=== PATIENT | male | born 1965 | race African-American/Black ===

== ENCOUNTER 2020-07-29 11:28 | Inpatient (IN) | payer BC ==
--- NOTE | 2020-07-29 11:35 | BHS.RME ---
Substance Use & Tx History - Substance Use History Alcohol Substance amount: 1/2 gallon wine Frequency of use: Daily Substance route: Oral Date of Last Use: 07/29/20 (started age 7) Marijuana/Hashish Date of Last Use: 07/29/20 (started age 6) Nicotine Substance amount: 10 blunts Frequency of use: Daily Substance route: Smoking Date of Last Use: 07/29/20 (started age 14) Physical/Psych/Mental Status - Behavior General Behavior: Increased activity (restlessness, agitation) Eye Contact: Normal - Cooperativeness Cooperativeness: Cooperative - Thinking Thought Processes: Tight, Logical, Goal Directed - Physical Health Problems Is patient presently having any pain?: No Does patient presently have any injuries (include location): No Does patient currently have a fever: No Is patient : No CIWA Nausea/Vomitin-Mild Nausea/No Vomiting Muscle Tremors: 1-None Visible, but [place] Anxiety: 4-Mod. Anxious/Guarded Agitation: 3 Paroxysmal Sweats: 4-Forehead w/Sweat Beads Orientation: 1-Uncertain about Date Tacttile Disturbances: 1-Very Mild Itch/Numbness Auditory Disturbances: 0-None Visual Disturbances: 1-Very Mild Sensitivity Headache: 2-Mild CIWA-Ar Total Score: 18
[2020-07-29 12:25] VITALS: BMI 31.4
--- NOTE | 2020-07-29 12:49 | HP ---
CIWA Score Nausea/Vomitin-Mild Nausea/No Vomiting Muscle Tremors: 1-None Visible, but [place] Anxiety: 4-Mod. Anxious/Guarded Agitation: 3 Paroxysmal Sweats: 4-Forehead w/Sweat Beads Orientation: 1-Uncertain about Date Tacttile Disturbances: 1-Very Mild Itch/Numbness Auditory Disturbances: 0-None Visual Disturbances: 1-Very Mild Sensitivity Headache: 2-Mild CIWA-Ar Total Score: 18 - Admission Criteria OASAS Guidelines: Admission for Medically Managed Detox: Requires at least one of the followin. CIWA greater than 12 2. Seizures within the past 24 hours 3. Delirium tremens within the past 24 hours 4. Hallucinations within the past 24 hours 5. Acute intervention needed for co occurring medical disorder 6. Acute intervention needed for co occurring psychiatric disorder 7. Severe withdrawal that cannot be handled at a lower level of care (continued vomiting, continued diarrhea, abnormal vital signs) requiring intravenous medication and/or fluids 8. Admitting History and Physical - Admission Chief Complaint: Mr. Coats is a 54 yo gentleman who presents to [facility] requesting admission to detox for alcohol use disorder. History of Present Illness: Mr. Coats is a 54 yo gentleman who presents to [facility] requesting admission to detox for alcohol use disorder. This is his first visit to [facility]. PMH: SVT, defibrillator 6 years ago (last discharged in October 2019), CAD, CABG x2, HTN, gout PSH; Defibrillator, bypass, umbilical hernia, left hand fracture Psych: schizophrenia, bipolar on no meds for more than one year SOC: lives alone in a private home Legal: none Substance Use History Alcohol Substance amount: 1/2 gallon wine Frequency of use: Daily Substance route: Oral Date of Last Use: 07/29/20 (started age 7) No seizures Blackouts, last was one year ago Admits to eyeopener Marijuana/Hashish Date of Last Use: 07/29/20 (started age 6) 10 blunts Nicotine Substance amount: 10 blunts Frequency of use: Daily Substance route: Smoking Date of Last Use: 07/29/20 (started age 14) History Source: Patient Limitations to Obtaining History: No Limitations Admission [facility] Allergies/Adverse Reactions: Allergies Allergy/AdvReac Type Severity Reaction Status Date / Time No Known Allergies Allergy Verified 07/29/20 12:30 Exam Limitations: No Limitations - Ebola screening Have you traveled outside of the country in the last 21 days: No Have you been sick,other than usual withdrawal symptoms: No Do you have a fever: No - Review of Systems Constitutional: No Symptoms Reported EENT: reports: No Symptoms Reported Respiratory: reports: Cough (dry for one week), Other (uses an inhaler) Cardiac: reports: Chest Pain (since October, followed by cardiology, he attributes to a procedure done in October 2019 ? stent) GI: reports: No Symptoms Reported : reports: Other (nocturia) Musculoskeletal: reports: Back Pain (lifelong per pt), Other (cane to ambulate) Integumentary: reports: Dryness Neuro: reports: No Symptoms reported Endocrine: reports: No Symptoms Reported Hematology: reports: No Symptoms Reported Psychiatric: reports: Anxious, Depressed (no SI) Patient History - Smoking Cessation Smoking history: Current every day smoker Have you smoked in the past 12 months: Yes Aproximately how many cigarettes per day: 5 Hx Chewing Tobacco Use: No Initiated information on smoking cessation: Yes 'Breaking Loose' booklet given: 07/29/20 Admission Physical Exam S - Vital Signs Vital Signs: Vital Signs - 24 hr 07/29/20 12:22 Temperature 97.3 F L Pulse Rate 79 Respiratory 20 Rate Blood Pressure 111/85 - Physical General Appearance: Yes: No Apparent Distress, Nourished, Appropriately Dressed HEENTM: Yes: EOMI, Hearing grossly Normal, Normocephalic, Normal Voice Respiratory: Yes: No Respiratory Distress, No Accessory Muscle Use, Rhonchi, Wheezing Neck: Yes: Within Normal Limits, Supple Breast: Yes: Breast Exam Deferred Cardiology: Yes: Regular Rate, S1, S2 Abdominal: Yes: Normal Bowel Sounds, Non Tender, Soft, Protuberent Genitourinary: Yes: Other (deferred) Back: Yes: Normal Inspection Musculoskeletal: Yes: Gait Steady Extremities: Yes: Normal Inspection, Non-Tender Neurological: Yes: Alert, Normal Response Integumentary: Yes: Within Normal Limits - Diagnostic (1) Alcohol abuse with withdrawal, uncomplicated Current Visit: Yes Status: Acute (2) Cannabis dependence Current Visit: Yes Status: Acute (3) Nicotine dependence Current Visit: Yes Status: Acute Qualifiers: Nicotine product type: cigarettes Substance use status: uncomplicated Qualified Code(s): F17.210 - Nicotine dependence, cigarettes, uncomplicated (4) SVT (supraventricular tachycardia) Current Visit: No Status: Chronic (5) Cardiac defibrillator in place Current Visit: No Status: Chronic (6) CAD (coronary artery disease) Current Visit: No Status: Chronic (7) S/P CABG x 2 Current Visit: No Status: Chronic (8) HTN (hypertension) Current Visit: Yes Status: Chronic (9) Gout Current Visit: No Status: Chronic (10) H/O umbilical hernia repair Current Visit: Yes Status: Acute (11) Left hand fracture Current Visit: No Status: Chronic (12) Schizophrenia Current Visit: Yes Status: Acute (13) Bipolar disorder Current Visit: Yes Status: Chronic Cleared for Admission BHS - Detox or Rehab S Level of Care: Medically Managed Detox Regimen/Protocol: Librium Breathalyzer - Breathalyzer Breathalyzer: 0 Urine Drug Screen - Test Device Lot number: [id number] Expiration date: 01/30/22 - Control Is test valid?: Yes - Results Drug screen NEGATIVE: No Urine drug screen results: THC-Marijuana Inpatient Rehab Admission - Rehab Decision to Admit Inpatient rehab admission?: No
[2020-07-29] MEDS ORDERED: MENTHOL/PHENOL 1 EACH UD MM PRN (12:53)
[2020-07-29] MEDS ORDERED: BISMUTH SUBSALICYLATE 524 MG/30 ML UD PO PRN (12:53)
[2020-07-29] MEDS ORDERED: ACETAMINOPHEN 325 MG TABLET (FP) PO PRN ×2 (12:53)
[2020-07-29] MEDS ORDERED: NICOTINE POLACRILEX 2 MG GUM BUC PRN (12:53)
[2020-07-29] MEDS ORDERED: MAG HYDROX/AL HYDROX/SIMETH 30 ML UNIT-DOSE CUP PO PRN (12:53)
[2020-07-29] MEDS ORDERED: IBUPROFEN 400 MG TABLET (FP) PO PRN (12:53)
[2020-07-29] MEDS ORDERED: MAGNESIUM HYDROX 2400MG/30ML ORAL SUSPENSION 30 ML CUP PO PRN (12:53)
[2020-07-29] MEDS ORDERED: MAGNESIUM CITRATE 300 ML BOTTLE PO PRN (12:53)
[2020-07-29] MEDS ORDERED: ONDANSETRON *ODT* 4 MG TABLET SL PRN (12:53)
[2020-07-29] MEDS ORDERED: chlordiazePOXIDE HCL 25 MG CAPSULE PO PRN (12:53)
[2020-07-29] MEDS ORDERED: hydrOXYzine PAMOATE 25 MG CAPSULE (FP) PO SCH (14:00)
[2020-07-29] MEDS ORDERED: hydrOXYzine PAMOATE 25 MG CAPSULE (FP) PO PRN (14:17)
[2020-07-29] MEDS: AMIODARONE HCL 200 MG TABLET PO SCH (15:14)
[2020-07-29] MEDS: APIXABAN 5 MG TABLET PO SCH ×2 (15:14→22:13)
[2020-07-29] MEDS: LISINOPRIL 20 MG TABLET PO SCH (15:14)
[2020-07-29] MEDS: ASPIRIN COATED 81 MG TABLET.EC PO SCH (15:14)
[2020-07-29] MEDS: TAMSULOSIN HCL 0.4 MG CAP PO SCH (15:15)
[2020-07-29] MEDS: ALLOPURINOL 300 MG TABLET (FP) PO SCH (15:15)
[2020-07-29] MEDS: ATORVASTATIN CA 20 MG TABLET (FP) PO SCH (15:15)
[2020-07-29] MEDS: FUROSEMIDE 40 MG TABLET (FP) PO SCH (15:15)
[2020-07-29] MEDS: hydrALAZINE HCL 25 MG TABLET (FP) PO SCH ×2 (15:15→22:13)
[2020-07-29] MEDS: POTASSIUM CHLORIDE TABS 20 MEQ TABLET.ER (FP) PO SCH ×2 (15:15→22:14)
[2020-07-29] MEDS: valACYclovir HCL 500 MG TABLET (FP) PO SCH (15:34)
--- OUTSIDE RECORDS SUMMARY | 2020-07-29 15:36 | XMS ---
:1965 Author Organization [facility] Support Name Relationship Address Phone UE Unavailable Unavailable Unavailable JULY SANCHEZ SISTER [address] [phone] [place] [address] Re-disclosure Warning The records that you are about to access may contain information from federally- assisted alcohol or drug abuse programs. If such information is present, then the following federally mandated warning applies: This information has been disclosed to you from records protected by federal confidentiality rules (42 CFR part 2). The federal rules prohibit you from making any further disclosure of this information unless further disclosure is expressly permitted by the written consent of the person to whom it pertains or as otherwise permitted by 42 CFR part 2. A general authorization for the release of medical or other information is NOT sufficient for this purpose. The Federal rules restrict any use of the information to criminally investigate or prosecute any alcohol or drug abuse patient.The records that you are about to access may contain highly sensitive health information, the redisclosure of which is protected by Article 27-F of the [place] Public Health law. If you continue you may haveaccess to information: Regarding HIV / AIDS; Provided by facilities licensed or operated by the [facility] Office of Mental Health; or Provided by the [facility] Office for People With Developmental Disabilities. If such information is present, then the following [facility] mandated warning applies: This information has been disclosed to you from confidential records which are protected by state law. State law prohibits you from making any further disclosure of this information without the specific written consent of the person to whom it pertains, or as otherwise permitted by law. Any unauthorized further disclosure in violation of state law may result in a fine or long term sentence or both. A general authorization for the release of medical or other information is NOT sufficient authorization for further disclosure. Allergies and Adverse Reactions Type Description Substance Reaction Status Data Source(s ) No Known No Known Allergies No Known eCW3 ( [place] [facility]) No Known No Known Allergies No Known eCW3 ( [place] [facility]) Encounters Encounter Providers Location Date Indications Data Source(s ) Outpatient [facility] 04/13/2019 eCW3 ([facility] 12:00:00 AM Health Care) EDT - 04/13/2019 12:00:00 AM EDT Outpatient [facility] 04/11/2019 eCW3 ([facility] 12:00:00 AM Health Care) EDT - 04/11/2019 12:00:00 AM EDT Medications Medication Brand Start Product Dose Route Administrative Pharmacy [facility] Indications Reaction Description Data Name Date Form Instructions Instructions Source(s) Trazodone Trazod .0 active Trazodone eCW3 Hydrochlori one 2018 {tabl HCl 50 MG (H [facility] de 50 MG HCl 50 12:00: [facility] Oral Tablet MG 00 AM [facility] Trazodone EDT ime_a Care) HCl 50 MG s_nee ded} Risperidone Risper .0 active Risperd al 1 eCW3 1 MG Oral amber 1 2018 {tabl mg ([place] Tablet mg 12:00: et} [place] [Risperdal] 00 AM Health Risperdal 1 EDT Care) mg Risperidone Risper .0 active Risperd al 1 eCW3 1 MG Oral amber 1 2018 {tabl mg ([place] Tablet mg 12:00: et} [place] [Risperdal] 00 AM Health Risperdal 1 EDT Care) mg Trazodone Trazod .0 active Trazodone eCW3 Hydrochlori one 2018 {tabl HCl 50 MG ([facility] de 50 MG HCl 50 12:00: [facility] [place] Oral Tablet MG 00 AM [facility] Trazodone EDT ime_a Care) HCl 50 MG s_nee ded} RISPERDAL UNK active RISPERDAL eCW 3 ([facility]) TRAZADONE UNK active TRAZADONE eCW 3 ([facility]) TRAZADONE UNK suspend TRAZADONE eC W3 ed ([facility]) RISPERDAL UNK active RISPERDAL eCW 3 ([facility]) TRAZADONE UNK suspend TRAZADONE eC W3 ed ([facility]) TRAZADONE UNK suspend TRAZADONE eC W3 ed ([facility]) TRAZADONE UNK active TRAZADONE eCW 3 ([facility]) TRAZADONE UNK suspend TRAZADONE eC W3 ed ([facility]) TRAZADONE UNK suspend TRAZADONE eC W3 ed ([facility]) TRAZADONE UNK suspend TRAZADONE eC W3 ed ([facility]) Insurance Providers Payer name Policy type Policy ID Covered Covered green party's Policy P eddie / Coverage green party ID relationship to Correa Inf ormation type correa [facility] [id number] [facility] 67 Problems, Conditions, and Diagnoses Code Display Name Description Problem Type Effective Dates Data Source(s) F33.2 Severe episode of Severe episode of Problem 04/13/2019 eCW3 ([place] 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 depressive [facility] [place]) disorder disorder Social History Code Duration Value Status Description Data Source(s ) Smoking UNK completed eCW3 ([facility]) Vital Signs ID Date Data Source UNK Name Value Range Interpretation Code Description Data Source(s) Diastolic blood 90 mm[Hg] 90 mm[Hg] eCW3 ([facility]) Systolic blood 134 mm[Hg] 134 mm[Hg] eCW3 ([facility]) Body temperature 98.6 [degF] 98.6 [degF] eCW3 ( [facility]) Heart rate 18 /min 18 /min eCW3 ([facility]) Body mass index 31.32 kg/m2 31.32 kg/m2 eCW3 ([facility] (BMI) [Ratio] [facility]) Body weight 200 [lb_av] 200 [lb_av] eCW3 ([facility]) Body height [in_i] eCW3 ([facility]) Patient Treatment Plan of Care Planned Activity Planned Date Details Description Data Source (s) Risperidone 1 MG Oral 04/13/2019 12:00:00 eCW3 ([facility] Tablet [Risperdal] AM [facility] Ca re) Trazodone Hydrochloride 04/13/2019 12:00:00 eCW3 ([facility] 50 MG Oral Tablet AM [employer] [facility] Car e) Risperidone 1 MG Oral 04/13/2019 12:00:00 eCW3 ([facility] Tablet [Risperdal] AM [facility]) Trazodone Hydrochloride 04/13/2019 12:00:00 eCW3 ([facility] 50 MG Oral Tablet AM [employer])
--- NOTE | 2020-07-29 17:11 | EKG ---
Test Reason : Blood Pressure : / mmHG Vent. Rate : 075 BPM Atrial Rate : 075 BPM P-R Int : 182 ms QRS Dur : 102 ms QT Int : 432 ms P-R-T Axes : 058 044 -66 degrees QTc Int : 482 ms NORMAL SINUS RHYTHM T WAVE ABNORMALITY, CONSIDER LATERAL ISCHEMIA PROLONGED QT ABNORMAL ECG NO PREVIOUS ECGS AVAILABLE Confirmed by JAQUAN BURCIAGA MD ([id number]) on 07/29/2020 5:10:48 PM Referred By: Confirmed By:JAQUAN BURCIAGA MD
[2020-07-29] MEDS: chlordiazePOXIDE HCL 25 MG CAPSULE PO SCH ×2 (17:47→22:13)
[2020-07-29] MEDS: METHOCARBAMOL 500 MG TABLET PO PRN (17:54)
[2020-07-29 18:08] LABS: HEMATOCRIT 35.9 % (35.4-49); HEMOGLOBIN 11.6 GM/dL (11.7-16.9); MCH 31.3 pg (25.7-33.7); MCHC 32.3 g/dl (32.0-35.9); MEAN CELL VOLUME 96.8 fl (80-96); PLATELET COUNT 124 K/MM3 (134-434); RBC 3.71 M/mm3 (4.00-5.60); RDW 16.4 % (11.9-15.9); WHITE BLOOD COUNT 5.1 K/mm3 (4.0-10.0)
[2020-07-29 18:20] LABS: ALBUMIN 3.7 g/dl (3.4-5.0); BILIRUBIN,TOTAL 1.5 mg/dL (0.2-1); BLOOD UREA NITROGEN 19.5 mg/dL (7-18); CALCIUM 8.9 mg/dL (8.5-10.1); CREATININE 1.5 mg/dL (0.55-1.3); POTASSIUM 3.9 mmol/L (3.5-5.1)
[2020-07-29] MEDS: CARVEDILOL 6.25 MG TABLET (FP) PO SCH (22:13)
[2020-07-29] MEDS: THIAMINE HCL 100 MG TABLET (FP) PO SCH (22:13)
[2020-07-29] MEDS: MELATONIN 5 MG TABLETS PO SCH (22:14)
[2020-07-30] MEDS: hydrALAZINE HCL 25 MG TABLET (FP) PO SCH ×3 (05:28→22:34)
[2020-07-30] MEDS: chlordiazePOXIDE HCL 25 MG CAPSULE PO SCH ×4 (05:28→22:34)
--- NOTE | 2020-07-30 08:43 | CONSULT ---
[facility] Psychiatric Consult - Data Date of interview: 07/30/20 Identifying data: Mr Coats is a 54 years old Black male, father of 5 children, unemployed receving SSI, domiciled seeking detox treatment for alcohol and cannabis Substance Abuse History: Reports history of alcohol and marijuana use. Refer to addiction counselor's summary for further information Medical History: Significant for hypertension, dyslipidemia, GERDgout, coronary artery disease, history of treatment for SVT and multiple surgeries(implantation of defibrilator, umbillical hernia repair, fracture right hand, CABG x2). Smokes 2-3 cigarettes daily Psychiatric History: This is patient's first admission to this facility. He was very irritable and hostile during the interview. He reports that he was diagnosed with Bipolar Schizophrenia in 2018 while [facility], a program in [place], [place]. Claims that because of Covid-19 Pandemic, he stopped seeing the psychiatrist at [facility] and recently was seeing a psychiatrist at [facility] in [place]. He told policy writer typist that he has not taken psychotropic medications since 2018. He could not tell name of medications he was prescribed only saying:" I stopped it because it grew my breast". Reports 2 previous psychiatric hospitalizations but could not provide name of facilities. Reports 2-3 suicidal attempts via overdose. At present, denies experiencing psychotic, manic symptoms, S/H ideations. However reports feeling depressed and sleeping poorly Physical/Sexual Abuse/Trauma History: Topic not addressed due to patient's host ility Mental Status Exam - Mental Status Exam Alert and Oriented to: Time, Place, Person Cognitive Function: Fair Patient Appearance: Disheveled Mood: Depressed, Irritable Affect: Appropriate Patient Behavior: Cooperative Speech Pattern: Clear Voice Loudness: Normal Thought Process: Intact, Goal Oriented Thought Disorder: Not Present Hallucinations: Denies Suicidal Ideation: Denies Homicidal Ideation: Denies Insight/Judgement: Poor Sleep: Poorly Appetite: Good Muscle strength/Tone: Normal Gait/Station: Normal Psychiatric Findings - Problem List ([place] 1, 2,3) (1) Schizoaffective disorder Current Visit: Yes Status: Chronic (2) Bipolar disorder Current Visit: Yes Status: Ruled-out (3) Substance induced mood disorder Current Visit: Yes Status: Acute (4) Substance-induced sleep disorder Current Visit: Yes Status: Acute (5) Alcohol abuse with withdrawal, uncomplicated Current Visit: Yes Status: Acute (6) Cannabis dependence Current Visit: Yes Status: Acute (7) Nicotine dependence Current Visit: Yes Status: Chronic Qualifiers: Nicotine product type: cigarettes Substance use status: uncomplicated Qualified Code(s): F17.210 - Nicotine dependence, cigarettes, uncomplicated (8) HTN (hypertension) Current Visit: Yes Status: Chronic (9) Dyslipidemia Current Visit: Yes Status: Chronic (10) CAD (coronary artery disease) Current Visit: No Status: Chronic (11) SVT (supraventricular tachycardia) Current Visit: Yes Status: Resolved (12) Gout Current Visit: No Status: Chronic (13) H/O umbilical hernia repair Current Visit: Yes Status: Acute (14) Cardiac defibrillator in place Current Visit: No Status: Chronic (15) Left hand fracture Current Visit: No Status: Chronic (16) S/P CABG x 2 Current Visit: No Status: Chronic - Initial Treatment Plan Initial Treatment Plan: 1) Start Seroquel 100 mg po HS. 2) Continue inpatient detoxification
--- NOTE | 2020-07-30 09:46 | PN ---
[facility] CIWA - CIWA Score Nausea/Vomitin-Mild Nausea/No Vomiting Muscle Tremors: 2 Anxiety: 2 Agitation: 2 Paroxysmal Sweats: No Perspiration Orientation: 0-Oriented Tacttile Disturbances: 1-Very Mild Itch/Numbness Auditory Disturbances: 0-None Visual Disturbances: 0-None Headache: 2-Mild CIWA-Ar Total Score: 10 S Progress Note (SOAP) Subjective: alert,irritable,anxious,interrupted sleep,aching pain,tremor,nausea,pain in the back Objective: 07/30/20 12:00 Vital Signs Temperature 98.2 F 07/30/20 08:58 Pulse Rate 76 07/30/20 08:58 Respiratory Rate 18 07/30/20 08:58 Blood Pressure 110/78 07/30/20 08:58 O2 Sat by Pulse Oximetry (%) 100 07/30/20 08:58 Laboratory Last Values WBC 5.1 K/mm3 (4.0-10.0) 07/29/20 12:40 RBC 3.71 M/mm3 (4.00-5.60) L 07/29/20 12:40 Hgb 11.6 GM/dL (11.7-16.9) L 07/29/20 12:40 Hct 35.9 % (35.4-49) 07/29/20 12:40 MCV 96.8 fl (80-96) H 07/29/20 12:40 MCH 31.3 pg (25.7-33.7) 07/29/20 12:40 MCHC 32.3 g/dl (32.0-35.9) 07/29/20 12:40 RDW 16.4 % (11.9-15.9) H 07/29/20 12:40 Plt Count 124 K/MM3 (134-434) L 07/29/20 12:40 MPV 10.0 fl (7.5-11.1) 07/29/20 12:40 Sodium 142 mmol/L (136-145) 07/29/20 12:40 Potassium 3.9 mmol/L (3.5-5.1) 07/29/20 12:40 Chloride 108 mmol/L (98-107) H 07/29/20 12:40 Carbon Dioxide 26 mmol/L (21-32) 07/29/20 12:40 Anion Gap 7 MMOL/L (8-16) L 07/29/20 12:40 BUN 19.5 mg/dL (7-18) H 07/29/20 12:40 Creatinine 1.5 mg/dL (0.55-1.3) H 07/29/20 12:40 Est GFR (CKD-EPI)AfAm 60.73 07/29/20 12:40 Est GFR (CKD-EPI)NonAf 52.40 07/29/20 12:40 Random Glucose 93 mg/dL (74-106) 07/29/20 12:40 Calcium 8.9 mg/dL (8.5-10.1) 07/29/20 12:40 Total Bilirubin 1.5 mg/dL (0.2-1) H 07/29/20 12:40 AST 20 U/L (15-37) 07/29/20 12:40 ALT 19 U/L (13-61) 07/29/20 12:40 Alkaline Phosphatase 213 U/L (45-117) H 07/29/20 12:40 Total Protein 7.0 g/dl (6.4-8.2) 07/29/20 12:40 Albumin 3.7 g/dl (3.4-5.0) 07/29/20 12:40 Syphilis Serology Non-reactive (NONREACTIVE) 07/29/20 12:40 COVID-19 ([facility]) Not detected (Not Detected) 07/29/20 13:35 HIV Ag/Ab Combo Qual Negative (NEGATIVE) 07/29/20 12:40 Assessment: 07/30/20 12:01 withdrawal symptom Plan: withdrawal symptom,continue detox librium regimen
[2020-07-30] MEDS: TAMSULOSIN HCL 0.4 MG CAP PO SCH (10:14)
[2020-07-30] MEDS: FUROSEMIDE 40 MG TABLET (FP) PO SCH (10:14)
[2020-07-30] MEDS: PANTOPRAZOLE 20 MG TABLET PO SCH (10:14)
[2020-07-30] MEDS: ISOSORBIDE MONONITRATE 30 MG TAB.SR.24H (FP) PO SCH (10:14)
[2020-07-30] MEDS: ALLOPURINOL 300 MG TABLET (FP) PO SCH (10:14)
[2020-07-30] MEDS: ASPIRIN COATED 81 MG TABLET.EC PO SCH (10:14)
[2020-07-30] MEDS: AMIODARONE HCL 200 MG TABLET PO SCH (10:14)
[2020-07-30] MEDS: LISINOPRIL 20 MG TABLET PO SCH (10:14)
[2020-07-30] MEDS: valACYclovir HCL 500 MG TABLET (FP) PO SCH (10:15)
[2020-07-30] MEDS: PRENATAL VITAMINS W/ FOLIC ACID TABLET (FP) PO SCH (10:15)
[2020-07-30] MEDS: CARVEDILOL 6.25 MG TABLET (FP) PO SCH ×2 (10:15→22:35)
[2020-07-30] MEDS: POTASSIUM CHLORIDE TABS 20 MEQ TABLET.ER (FP) PO SCH ×2 (10:16→22:35)
[2020-07-30] MEDS: NICOTINE 7 MG/24 HOURS TOPICAL PATCH TD SCH (10:17)
[2020-07-30] MEDS: METHOCARBAMOL 500 MG TABLET PO PRN (10:18)
[2020-07-30] MEDS: ATORVASTATIN CA 20 MG TABLET (FP) PO SCH (10:18)
[2020-07-30] MEDS: APIXABAN 5 MG TABLET PO SCH ×2 (12:12→22:35)
[2020-07-30] MEDS: THIAMINE HCL 100 MG TABLET (FP) PO SCH (22:34)
[2020-07-30] MEDS: MELATONIN 5 MG TABLETS PO SCH (22:36)
[2020-07-31] MEDS: chlordiazePOXIDE HCL 25 MG CAPSULE PO SCH ×4 (05:22→22:14)
[2020-07-31] MEDS: hydrALAZINE HCL 25 MG TABLET (FP) PO SCH ×3 (05:22→22:14)
[2020-07-31] MEDS: ISOSORBIDE MONONITRATE 30 MG TAB.SR.24H (FP) PO SCH (10:26)
[2020-07-31] MEDS: AMIODARONE HCL 200 MG TABLET PO SCH (10:26)
[2020-07-31] MEDS: ATORVASTATIN CA 20 MG TABLET (FP) PO SCH (10:26)
[2020-07-31] MEDS: LISINOPRIL 20 MG TABLET PO SCH (10:26)
[2020-07-31] MEDS: POTASSIUM CHLORIDE TABS 20 MEQ TABLET.ER (FP) PO SCH ×2 (10:26→22:16)
[2020-07-31] MEDS: ALLOPURINOL 300 MG TABLET (FP) PO SCH (10:27)
[2020-07-31] MEDS: ASPIRIN COATED 81 MG TABLET.EC PO SCH (10:27)
[2020-07-31] MEDS: CARVEDILOL 6.25 MG TABLET (FP) PO SCH ×2 (10:27→22:14)
[2020-07-31] MEDS: FUROSEMIDE 40 MG TABLET (FP) PO SCH (10:27)
[2020-07-31] MEDS: APIXABAN 5 MG TABLET PO SCH ×2 (10:27→22:14)
[2020-07-31] MEDS: valACYclovir HCL 500 MG TABLET (FP) PO SCH (10:27)
[2020-07-31] MEDS: TAMSULOSIN HCL 0.4 MG CAP PO SCH (10:27)
[2020-07-31] MEDS: PANTOPRAZOLE 20 MG TABLET PO SCH (10:27)
[2020-07-31] MEDS: NICOTINE 7 MG/24 HOURS TOPICAL PATCH TD SCH (10:28)
[2020-07-31] MEDS: PRENATAL VITAMINS W/ FOLIC ACID TABLET (FP) PO SCH (10:28)
--- NOTE | 2020-07-31 10:40 | PN ---
S CIWA - CIWA Score Nausea/Vomitin-No Nausea/No Vomiting Muscle Tremors: 2 Anxiety: 1-Mildly Anxious Agitation: 2 Paroxysmal Sweats: 1-Minimal Palms Moist Orientation: 0-Oriented Tacttile Disturbances: 0-None Auditory Disturbances: 0-None Visual Disturbances: 0-None Headache: 0-None Present CIWA-Ar Total Score: 6 BHS Progress Note (SOAP) Subjective: back pain sweats Objective: 07/31/20 11:58 Vital Signs Temperature 97.3 F L 07/31/20 08:25 Pulse Rate 74 07/31/20 08:25 Respiratory Rate 18 07/31/20 08:25 Blood Pressure 118/82 07/31/20 08:25 O2 Sat by Pulse Oximetry (%) 98 07/31/20 08:25 Laboratory Tests 07/29/20 07/29/20 07/29/20 12:40 12:40 12:40 WBC 5.1 RBC 3.71 L Hgb 11.6 L Hct 35.9 MCV 96.8 H MCH 31.3 MCHC 32.3 RDW 16.4 H Plt Count 124 L MPV 10.0 Sodium 142 Potassium 3.9 Chloride 108 H Carbon Dioxide 26 Anion Gap 7 L BUN 19.5 H Creatinine 1.5 H Est GFR (CKD-EPI)AfAm 60.73 Est GFR (CKD-EPI)NonAf 52.40 Random Glucose 93 Calcium 8.9 Total Bilirubin 1.5 H AST 20 ALT 19 Alkaline Phosphatase 213 H Total Protein 7.0 Albumin 3.7 Syphilis Serology Non-reactive COVID-19 ([facility]) HIV Ag/Ab Combo Qual 07/29/20 07/29/20 07/31/20 12:40 13:35 07:00 WBC RBC Hgb Hct MCV MCH MCHC RDW Plt Count MPV Sodium 141 Potassium 4.0 Chloride 108 H Carbon Dioxide 28 Anion Gap 5 L BUN 21.2 H Creatinine 1.1 Est GFR (CKD-EPI)AfAm 88.36 Est GFR (CKD-EPI)NonAf 76.24 Random Glucose 110 H Calcium 8.6 Total Bilirubin 1.8 H AST 14 L ALT 15 Alkaline Phosphatase 212 H Total Protein 6.1 L Albumin 3.2 L Syphilis Serology COVID-19 ([facility]) Not detected HIV Ag/Ab Combo Qual Negative repeated labs remain the same will repeat labs encourage fluids aaox3 ambulating no acute distress Assessment: 10/07/20 12:00 withdrawals Plan: continue detox increase fluids lidocaine patch
[2020-07-31 11:41] LABS: ALBUMIN 3.2 g/dl (3.4-5.0); BILIRUBIN,TOTAL 1.8 mg/dL (0.2-1); BLOOD UREA NITROGEN 21.2 mg/dL (7-18); CALCIUM 8.6 mg/dL (8.5-10.1); CREATININE 1.1 mg/dL (0.55-1.3); TOT PROT 6.1 g/dl (6.4-8.2)
[2020-07-31] MEDS: LIDOCAINE 5% TOPICAL PATCH TP SCH (12:34)
[2020-07-31] MEDS: THIAMINE HCL 100 MG TABLET (FP) PO SCH (22:14)
[2020-07-31] MEDS: MELATONIN 5 MG TABLETS PO SCH (22:16)
[2020-07-31] MEDS: LIDOCAINE PATCH REMOVAL MC SCH (22:16)
[2020-08-01] MEDS ORDERED: chlordiazePOXIDE HCL 10 MG CAPSULE PO PRN
[2020-08-01] MEDS: chlordiazePOXIDE HCL 10 MG CAPSULE PO SCH ×4 (07:30→22:22)
[2020-08-01] MEDS: hydrALAZINE HCL 25 MG TABLET (FP) PO SCH ×3 (07:31→22:22)
[2020-08-01] MEDS: METHOCARBAMOL 500 MG TABLET PO PRN (08:43)
--- NOTE | 2020-08-01 09:42 | PN ---
S CIWA - CIWA Score Nausea/Vomitin-No Nausea/No Vomiting Muscle Tremors: 1-None Visible, but [place] Anxiety: 1-Mildly Anxious Agitation: 1-Slight > Activity Paroxysmal Sweats: No Perspiration Orientation: 0-Oriented Tacttile Disturbances: 0-None Auditory Disturbances: 0-None Visual Disturbances: 0-None Headache: 0-None Present CIWA-Ar Total Score: 3 BHS Progress Note (SOAP) Subjective: back pain restless Objective: 08/01/20 09:41 Vital Signs Temperature 97.5 F L 08/01/20 08:36 Pulse Rate 75 08/01/20 08:36 Respiratory Rate 18 08/01/20 08:36 Blood Pressure 111/76 08/01/20 08:36 O2 Sat by Pulse Oximetry (%) 95 08/01/20 08:36 Laboratory Tests 07/29/20 07/29/20 07/29/20 12:40 12:40 12:40 WBC 5.1 RBC 3.71 L Hgb 11.6 L Hct 35.9 MCV 96.8 H MCH 31.3 MCHC 32.3 RDW 16.4 H Plt Count 124 L MPV 10.0 Sodium 142 Potassium 3.9 Chloride 108 H Carbon Dioxide 26 Anion Gap 7 L BUN 19.5 H Creatinine 1.5 H Est GFR (CKD-EPI)AfAm 60.73 Est GFR (CKD-EPI)NonAf 52.40 Random Glucose 93 Calcium 8.9 Total Bilirubin 1.5 H AST 20 ALT 19 Alkaline Phosphatase 213 H Total Protein 7.0 Albumin 3.7 Syphilis Serology Non-reactive COVID-19 ([facility]O) HIV Ag/Ab Combo Qual 07/29/20 07/29/20 07/31/20 12:40 13:35 07:00 WBC RBC Hgb Hct MCV MCH MCHC RDW Plt Count MPV Sodium 141 Potassium 4.0 Chloride 108 H Carbon Dioxide 28 Anion Gap 5 L BUN 21.2 H Creatinine 1.1 Est GFR (CKD-EPI)AfAm 88.36 Est GFR (CKD-EPI)NonAf 76.24 Random Glucose 110 H Calcium 8.6 Total Bilirubin 1.8 H AST 14 L ALT 15 Alkaline Phosphatase 212 H Total Protein 6.1 L Albumin 3.2 L Syphilis Serology COVID-19 ([facility]O) Not detected HIV Ag/Ab Combo Qual Negative aaox3 ambulating no acute distress Assessment: 08/01/20 09:42 withdrawals Plan: continue detox
[2020-08-01] MEDS: valACYclovir HCL 500 MG TABLET (FP) PO SCH (10:10)
[2020-08-01] MEDS: POTASSIUM CHLORIDE TABS 20 MEQ TABLET.ER (FP) PO SCH ×2 (10:10→22:22)
[2020-08-01] MEDS: AMIODARONE HCL 200 MG TABLET PO SCH (10:10)
[2020-08-01] MEDS: ASPIRIN COATED 81 MG TABLET.EC PO SCH (10:10)
[2020-08-01] MEDS: ATORVASTATIN CA 20 MG TABLET (FP) PO SCH (10:10)
[2020-08-01] MEDS: TAMSULOSIN HCL 0.4 MG CAP PO SCH (10:10)
[2020-08-01] MEDS: ISOSORBIDE MONONITRATE 30 MG TAB.SR.24H (FP) PO SCH (10:10)
[2020-08-01] MEDS: LISINOPRIL 20 MG TABLET PO SCH (10:10)
[2020-08-01] MEDS: ALLOPURINOL 300 MG TABLET (FP) PO SCH (10:10)
[2020-08-01] MEDS: CARVEDILOL 6.25 MG TABLET (FP) PO SCH ×2 (10:10→22:22)
[2020-08-01] MEDS: FUROSEMIDE 40 MG TABLET (FP) PO SCH (10:10)
[2020-08-01] MEDS: PANTOPRAZOLE 20 MG TABLET PO SCH (10:10)
[2020-08-01] MEDS: PRENATAL VITAMINS W/ FOLIC ACID TABLET (FP) PO SCH (10:11)
[2020-08-01] MEDS: NICOTINE 7 MG/24 HOURS TOPICAL PATCH TD SCH (10:11)
[2020-08-01] MEDS: LIDOCAINE 5% TOPICAL PATCH TP SCH (10:14)
[2020-08-01] MEDS: APIXABAN 5 MG TABLET PO SCH ×2 (13:04→22:22)
[2020-08-01] MEDS: MELATONIN 5 MG TABLETS PO SCH (22:23)
[2020-08-01] MEDS: LIDOCAINE PATCH REMOVAL MC SCH (22:23)
[2020-08-01] MEDS: THIAMINE HCL 100 MG TABLET (FP) PO SCH (22:23)
[2020-08-02] MEDS: chlordiazePOXIDE HCL 10 MG CAPSULE PO SCH ×2 (05:03→18:04)
[2020-08-02] MEDS: hydrALAZINE HCL 25 MG TABLET (FP) PO SCH ×3 (05:37→22:13)
[2020-08-02] MEDS ORDERED: MASKS NR ONE (07:09)
[2020-08-02 10:40] LABS: ALBUMIN 3.5 g/dl (3.4-5.0); BASO % 0.7 % (0-2.0); BILIRUBIN,TOTAL 2.1 mg/dL (0.2-1); BLOOD UREA NITROGEN 25.7 mg/dL (7-18); CALCIUM 9.2 mg/dL (8.5-10.1); CREATININE 1.3 mg/dL (0.55-1.3); EOS % 2.3 % (0-4.5); HEMATOCRIT 34.4 % (35.4-49); HEMOGLOBIN 10.8 GM/dL (11.7-16.9); LYMPH % 21.3 % (8-40); MCH 30.1 pg (25.7-33.7); MCHC 31.4 g/dl (32.0-35.9); MEAN CELL VOLUME 95.8 fl (80-96); MEAN PLT VOLUME 9.5 fl (7.5-11.1); MONO % 14.7 % (3.8-10.2); PLATELET COUNT 117 K/MM3 (134-434); POTASSIUM 4.4 mmol/L (3.5-5.1); RBC 3.59 M/mm3 (4.00-5.60); RDW 16.3 % (11.9-15.9); TOT PROT 6.5 g/dl (6.4-8.2); WHITE BLOOD COUNT 3.8 K/mm3 (4.0-10.0)
[2020-08-02] MEDS: PRENATAL VITAMINS W/ FOLIC ACID TABLET (FP) PO SCH (11:07)
[2020-08-02] MEDS: NICOTINE 7 MG/24 HOURS TOPICAL PATCH TD SCH (11:07)
[2020-08-02] MEDS: valACYclovir HCL 500 MG TABLET (FP) PO SCH (11:07)
[2020-08-02] MEDS: ASPIRIN COATED 81 MG TABLET.EC PO SCH (11:08)
[2020-08-02] MEDS: PANTOPRAZOLE 20 MG TABLET PO SCH (11:08)
[2020-08-02] MEDS: ALLOPURINOL 300 MG TABLET (FP) PO SCH (11:08)
[2020-08-02] MEDS: LIDOCAINE 5% TOPICAL PATCH TP SCH (11:12)
[2020-08-02] MEDS: TAMSULOSIN HCL 0.4 MG CAP PO SCH (11:13)
--- NOTE | 2020-08-02 11:23 | PN ---
S CIWA - CIWA Score Nausea/Vomitin-No Nausea/No Vomiting Muscle Tremors: 2 Anxiety: 2 Agitation: 1-Slight > Activity Paroxysmal Sweats: No Perspiration Orientation: 0-Oriented Tacttile Disturbances: 0-None Auditory Disturbances: 0-None Visual Disturbances: 0-None Headache: 0-None Present CIWA-Ar Total Score: 5 BHS Progress Note (SOAP) Subjective: alert,irritable,anxious,aching pain Objective: 08/02/20 11:22 Vital Signs Temperature 97.5 F L 08/02/20 08:35 Pulse Rate 76 08/02/20 08:35 Respiratory Rate 18 08/02/20 08:35 Blood Pressure 112/81 08/02/20 08:35 O2 Sat by Pulse Oximetry (%) 100 08/02/20 08:35 Laboratory Last Values WBC 3.8 K/mm3 (4.0-10.0) L 08/02/20 06:50 RBC 3.59 M/mm3 (4.00-5.60) L 08/02/20 06:50 Hgb 10.8 GM/dL (11.7-16.9) L 08/02/20 06:50 Hct 34.4 % (35.4-49) L 08/02/20 06:50 MCV 95.8 fl (80-96) 08/02/20 06:50 MCH 30.1 pg (25.7-33.7) 08/02/20 06:50 MCHC 31.4 g/dl (32.0-35.9) L 08/02/20 06:50 RDW 16.3 % (11.9-15.9) H 08/02/20 06:50 Plt Count 117 K/MM3 (134-434) L 08/02/20 06:50 MPV 9.5 fl (7.5-11.1) 08/02/20 06:50 Absolute Neuts (auto) 2.3 K/mm3 (1.5-8.0) 08/02/20 06:50 Neutrophils % 61.0 % (42.8-82.8) 08/02/20 06:50 Lymphocytes % 21.3 % (8-40) 08/02/20 06:50 Monocytes % 14.7 % (3.8-10.2) H 08/02/20 06:50 Eosinophils % 2.3 % (0-4.5) 08/02/20 06:50 Basophils % 0.7 % (0-2.0) 08/02/20 06:50 Nucleated RBC % 0 % (0-0) 08/02/20 06:50 Sodium 141 mmol/L (136-145) 08/02/20 06:50 Potassium 4.4 mmol/L (3.5-5.1) 08/02/20 06:50 Chloride 104 mmol/L (98-107) 08/02/20 06:50 Carbon Dioxide 32 mmol/L (21-32) 08/02/20 06:50 Anion Gap 5 MMOL/L (8-16) L 08/02/20 06:50 BUN 25.7 mg/dL (7-18) H 08/02/20 06:50 Creatinine 1.3 mg/dL (0.55-1.3) 08/02/20 06:50 Est GFR (CKD-EPI)AfAm 72.20 08/02/20 06:50 Est GFR (CKD-EPI)NonAf 62.29 08/02/20 06:50 Random Glucose 118 mg/dL (74-106) H 08/02/20 06:50 Calcium 9.2 mg/dL (8.5-10.1) 08/02/20 06:50 Total Bilirubin 2.1 mg/dL (0.2-1) H 08/02/20 06:50 AST 19 U/L (15-37) 08/02/20 06:50 ALT 17 U/L (13-61) 08/02/20 06:50 Alkaline Phosphatase 213 U/L (45-117) H 08/02/20 06:50 Total Protein 6.5 g/dl (6.4-8.2) 08/02/20 06:50 Albumin 3.5 g/dl (3.4-5.0) 08/02/20 06:50 Syphilis Serology Non-reactive (NONREACTIVE) 07/29/20 12:40 COVID-19 (BOBO) Not detected (Not Detected) 07/29/20 13:35 HIV Ag/Ab Combo Qual Negative (NEGATIVE) 07/29/20 12:40 Assessment: 08/02/20 11:23 withdrawal symptom Plan: continue detox librium regimen,declined rehab refer,would like to go home,advise follow up with medical provider upon discharge
[2020-08-02] MEDS: APIXABAN 5 MG TABLET PO SCH ×2 (15:04→22:13)
[2020-08-02] MEDS: CARVEDILOL 6.25 MG TABLET (FP) PO SCH ×2 (15:05→22:13)
[2020-08-02] MEDS: AMIODARONE HCL 200 MG TABLET PO SCH (15:05)
[2020-08-02] MEDS: LISINOPRIL 20 MG TABLET PO SCH (15:06)
[2020-08-02] MEDS: FUROSEMIDE 40 MG TABLET (FP) PO SCH (15:07)
[2020-08-02] MEDS: ATORVASTATIN CA 20 MG TABLET (FP) PO SCH (15:12)
[2020-08-02] MEDS: POTASSIUM CHLORIDE TABS 20 MEQ TABLET.ER (FP) PO SCH ×2 (15:13→22:13)
[2020-08-02] MEDS: ISOSORBIDE MONONITRATE 30 MG TAB.SR.24H (FP) PO SCH (15:43)
[2020-08-02] MEDS ORDERED: FUROSEMIDE 40 MG TABLET (FP) PO SCH (17:00)
[2020-08-02] MEDS: THIAMINE HCL 100 MG TABLET (FP) PO SCH (22:13)
[2020-08-02] MEDS: MELATONIN 5 MG TABLETS PO SCH (22:14)
[2020-08-02] MEDS: LIDOCAINE PATCH REMOVAL MC SCH (22:14)
[2020-08-03] MEDS ORDERED: chlordiazePOXIDE HCL 10 MG CAPSULE PO ONE (05:00)
[2020-08-03] MEDS: METHOCARBAMOL 500 MG TABLET PO PRN (06:53)
[2020-08-03] MEDS: hydrALAZINE HCL 25 MG TABLET (FP) PO SCH (06:53)
[2020-08-03 07:29] VITALS: BP 80/54; PULSE 70; TEMP 96
--- NOTE | 2020-08-03 10:44 | DS ---
[facility] Detox Discharge Summary Admission Date: 07/29/20 Discharge Date: 08/03/20 - History Present History: Alcohol Dependence Additional Comments: Patient seen and examined, alert and oriented x3, in acute respiratory distress. Full ROM, ambulatory in the unit without assistance. Skin warm to touch without lesions. Completed detox protocol, stable for discharge today. Encouraged to follow up with aftercare. Pertinent Past History: History of CAD, CABG, Defibrillator, HTN,Gout, hernia repair,alcohol, marijuana and nicotine use disorder. - Physical Exam Results Vital Signs: Vital Signs Temperature 96 F L 08/03/20 06:00 Pulse Rate 70 08/03/20 06:00 Respiratory Rate 18 08/03/20 06:00 Blood Pressure 80/54 L 08/03/20 06:00 O2 Sat by Pulse Oximetry (%) 100 08/03/20 06:00 Vital Signs 08/03/20 06:00 Temperature 96 F L Pulse Rate 70 Respiratory 18 Rate Blood Pressure 80/54 L O2 Sat by Pulse 100 Oximetry (%) Laboratory Last Values WBC 3.8 K/mm3 (4.0-10.0) L 08/02/20 06:50 RBC 3.59 M/mm3 (4.00-5.60) L 08/02/20 06:50 Hgb 10.8 GM/dL (11.7-16.9) L 08/02/20 06:50 Hct 34.4 % (35.4-49) L 08/02/20 06:50 MCV 95.8 fl (80-96) 08/02/20 06:50 MCH 30.1 pg (25.7-33.7) 08/02/20 06:50 MCHC 31.4 g/dl (32.0-35.9) L 08/02/20 06:50 RDW 16.3 % (11.9-15.9) H 08/02/20 06:50 Plt Count 117 K/MM3 (134-434) L 08/02/20 06:50 MPV 9.5 fl (7.5-11.1) 08/02/20 06:50 Absolute Neuts (auto) 2.3 K/mm3 (1.5-8.0) 08/02/20 06:50 Neutrophils % 61.0 % (42.8-82.8) 08/02/20 06:50 Lymphocytes % 21.3 % (8-40) 08/02/20 06:50 Monocytes % 14.7 % (3.8-10.2) H 08/02/20 06:50 Eosinophils % 2.3 % (0-4.5) 08/02/20 06:50 Basophils % 0.7 % (0-2.0) 08/02/20 06:50 Nucleated RBC % 0 % (0-0) 08/02/20 06:50 Sodium 141 mmol/L (136-145) 08/02/20 06:50 Potassium 4.4 mmol/L (3.5-5.1) 08/02/20 06:50 Chloride 104 mmol/L (98-107) 08/02/20 06:50 Carbon Dioxide 32 mmol/L (21-32) 08/02/20 06:50 Anion Gap 5 MMOL/L (8-16) L 08/02/20 06:50 BUN 25.7 mg/dL (7-18) H 08/02/20 06:50 Creatinine 1.3 mg/dL (0.55-1.3) 08/02/20 06:50 Est GFR (CKD-EPI)AfAm 72.20 08/02/20 06:50 Est GFR (CKD-EPI)NonAf 62.29 08/02/20 06:50 Random Glucose 118 mg/dL (74-106) H 08/02/20 06:50 Calcium 9.2 mg/dL (8.5-10.1) 08/02/20 06:50 Total Bilirubin 2.1 mg/dL (0.2-1) H 08/02/20 06:50 AST 19 U/L (15-37) 08/02/20 06:50 ALT 17 U/L (13-61) 08/02/20 06:50 Alkaline Phosphatase 213 U/L (45-117) H 08/02/20 06:50 Total Protein 6.5 g/dl (6.4-8.2) 08/02/20 06:50 Albumin 3.5 g/dl (3.4-5.0) 08/02/20 06:50 Syphilis Serology Non-reactive (NONREACTIVE) 07/29/20 12:40 COVID-19 (BOBO) Not detected (Not Detected) 07/29/20 13:35 HIV Ag/Ab Combo Qual Negative (NEGATIVE) 07/29/20 12:40 Labs noted. Pertinent Admission Physical Exam Findings: Withdrawal symptoms. - Treatment Hospital Course: Detox Protocol Followed, Detoxed Safely, Responded well, Discharged Condition Good - Medication Discharge Medications: Ambulatory Orders Allopurinol 300 mg PO DAILY 07/29/20 Amiodarone HCl 200 mg PO DAILY 07/29/20 Apixaban [Eliquis -] 5 mg PO BID 07/29/20 Aspirin [Aspirin EC] 81 mg PO DAILY 07/29/20 Atorvastatin Calcium 20 mg PO DAILY 07/29/20 Carvedilol [Coreg] 6.25 mg PO BID 07/29/20 Furosemide 40 mg PO DAILY 07/29/20 Hydralazine HCl 25 mg PO TID 07/29/20 Isosorbide Mononitrate [Isosorbide Mononitrate ER] 30 mg PO DAILY 07/29/20 Lansoprazole [Prevacid] 30 mg PO DAILY 07/29/20 Lisinopril [Prinivil -] 40 mg PO DAILY 07/29/20 Potassium Chloride [K-Dur -] 10 meq PO BID 07/29/20 Tamsulosin HCl [Flomax] 0.4 mg PO DAILY 07/29/20 Valacyclovir HCl [Valtrex -] 500 mg PO DAILY 07/29/20 Zolpidem Tartrate [Ambien] 10 mg PO HS PRN 07/29/20 - Diagnosis (1) Alcohol abuse with withdrawal, uncomplicated Status: Acute (2) H/O umbilical hernia repair Status: Chronic (3) CAD (coronary artery disease) Status: Chronic (4) Cardiac defibrillator in place Status: Chronic (5) Gout Status: Chronic (6) HTN (hypertension) Status: Chronic (7) Left hand fracture Status: Chronic (8) Nicotine dependence Status: Chronic Qualifiers: Nicotine product type: cigarettes Substance use status: uncomplicated Qualified Code(s): F17.210 - Nicotine dependence, cigarettes, uncomplicated (9) S/P CABG x 2 Status: Chronic - AMA Did Patient Leave Against Medical Advice: No
== END 2020-08-03 09:25 | disposition home or self-care (01) | DRG 775 ==
LOC: YASAS 11:28 → Y6N 12:55
PROVIDERS: ADMIT Allergy & Immunology; ATTEND Allergy & Immunology
PROC: HZ2ZZZZ Detoxification Services for Substance Abuse Treatment (ICD-10-PCS; principal; 2020-07-29)
DX: F10.230 Alcohol dependence with withdrawal, uncomplicated (principal); F12.20 Cannabis dependence, uncomplicated; F17.210 Nicotine dependence, cigarettes, uncomplicated; F25.9 Schizoaffective disorder, unspecified; F19.282 Other psychoactive substance dependence with psychoactive substance-induced sleep disorder; F19.24 Other psychoactive substance dependence with psychoactive substance-induced mood disorder; I25.10 Atherosclerotic heart disease of native coronary artery without angina pectoris; I10 Essential (primary) hypertension; Z95.1 Presence of aortocoronary bypass graft; Z95.810 Presence of automatic (implantable) cardiac defibrillator; E78.5 Hyperlipidemia, unspecified; K21.9 Gastro-esophageal reflux disease without esophagitis; M10.9 Gout, unspecified; Z87.81 Personal history of (healed) traumatic fracture; Z79.01 Long term (current) use of anticoagulants; Z98.890 Other specified postprocedural states; Z99.89 Dependence on other enabling machines and devices; Z56.0 Unemployment, unspecified
CPT/HCPCS: 36415; 80053; 85025; 85027; 86780; 87389; 93005; 93010; C9803; U0003